=== PATIENT | male | born 1940 | race Caucasian/White ===

== ENCOUNTER 2021-03-08 16:08 | Outpatient (REF) | payer MEDICARE, OTHER, SELFPAY ==
--- NOTE | ~2021-03-08 | XR_ITS ---
EXAMINATION: XR CHEST CLINICAL INFORMATION: Shortness of breath COMPARISON: None TECHNIQUE: 2 views of the chest were obtained. FINDINGS: There is some patchy regions of disease at the lung bases which may be on basis of atelectasis or pneumonitis. There is a somewhat reticular nodular appearance peripherally which may relate to chronic disease. No pneumothorax or significant pleural effusion. Heart normal size. No evidence of pulmonary edema. Coronary stent noted. XR/XR chest 2V IMPRESSION: Patchy regions of reticulonodular disease in a peripheral pattern which may be related to chronic interstitial lung disease. Acute on chronic process is not excluded and could be related to atypical or viral pneumonitis.
== END 2021-03-08 16:09 | disposition home or self-care (01) ==
LOC: HO.HMGCX 16:08
PROVIDERS: PCP Internal Medicine; Visit Provider Nurse Practitioner Family
DX: R06.02 Shortness of breath (principal)
CPT/HCPCS: 71046